=== PATIENT | male | born 1950 | race Caucasian/White ===

== ENCOUNTER 2024-09-18 22:31 | Outpatient (REF) | payer MEDICAID, SELFPAY ==
[2024-09-18 22:32] VITALS: BP 147/83; PULSE 74; RESP 16; TEMP 36.6; O2SAT 98; BMI 24.5
[2024-09-18 23:14] VITALS: BP 124/85; BP 127/81; BP 138/94; PULSE 101; PULSE 83; PULSE 91
[2024-09-18] MEDS: 0.9% Normal Saline (500mL Bag) 500 ML 999 ML IV (23:32)
[2024-09-18] MEDS: Ondansetron 4 MG/2 ML Vial IV (23:35)
[2024-09-18 23:38] LABS: Absolute Lymphocyte Count 1.26 X10^3/uL (0.83-4.51); Absolute Neutrophil Count 5.7 X10^3/uL (2.0-7.7); Basophil# 0.03 X10^3/uL; Basophil% 0.4 % (0-1); Eosinophil# 0.06 X10^3/uL; Eosinophils% 0.8 % (0-5); Hematocrit 39.6 % (40-54); Lymphocyte # 1.26 X10^3/ul (0.83-4.51); Lymphocyte % 15.9 % (19-41); Mean Corp Hgb Conc 35.4 g/dL (32-36); Mean Corpuscular Hgb 30.9 pg (27.0-32.0); Mean Corpuscular Volume 87.4 fL (80-94); Mean Platelet Vol. 8.7 fl (6.2-12.0); Monocyte# 0.78 X10^3/uL; Monocyte% 9.9 % (0-10); NRBC Flagged by Analyzer 0 % (0-5); Neutrophil # 5.74 X10^3/uL (2.7-7.7); Neutrophil % 72.5 % (47-70); Platelet Count 189 K/mm3 (150-450); RBC Distribution Width CV 13.6 % (11.6-14.6); RBC Distribution Width SD 43.4 fl (35.1-43.9); Red Blood Count 4.53 M/mm3 (4.6-6.2); White Blood Count 7.9 K/mm3 (4.4-11.0)
[2024-09-18 23:59] LABS: Anion Gap 5 (5-15); BUN 26 mg/dL (7-18); BUN/Creat Ratio 22.4 RATIO (10-20); Chloride 109 mmol/L (98-107); Creatinine, Serum 1.16 mg/dL (0.70-1.30); EST Glomerular Filtration Rate 66 mL/min (>60); Est Glom Filt Rate - Afr Amer 79 mL/min (>60); Estimated Creatinine Clearance 65.94 ml/min; Glucose 107 mg/dL (74-106); Potassium 4.1 mmol/L (3.5-5.1); Sodium Level 141 mmol/L (136-145)
[2024-09-19 00:31] VITALS: BP 132/87; PULSE 79; RESP 18; O2SAT 95
[2024-09-19 00:34] VITALS: BP 132/87; PULSE 79; RESP 18; TEMP 36.8; O2SAT 98
== END 2024-09-19 00:55 ==
LOC: ED 22:31
PROVIDERS: Visit Provider Emergency Medicine
DX: R42 Dizziness and giddiness (principal); E86.0 Dehydration; F79 Unspecified intellectual disabilities; F40.00 Agoraphobia, unspecified
CPT/HCPCS: 80048; 85025; 96361; 96374; J7040; A4216; J2405